=== PATIENT | female | born 1980 | race Caucasian/White ===

== ENCOUNTER → 2019-02-25 11:55 | Outpatient (CLI) | payer OTHER, SELFPAY ==
--- NOTE | 2019-02-25 | DI.MRI.S_ITS ---
PROCEDURE: MR LUMBAR SPINE WO CON INDICATIONS: Low back pain TECHNIQUE: Noncontrast sagittal T1 spin echo and T2 fast echo, sagittal STIR, axial T1 and T2 fast spin echo through the lumbar spine. In cases with scoliosis, additional coronal T2 fast spin echo may be performed. COMPARISON: None. FINDINGS: Image quality: Excellent. Alignment and Curvature: There is grade 1 anterolisthesis of L4 on L5 measures 6 mm in distance. Bone Marrow: Marrow is of normal overall signal. No acute vertebral body compression fractures. Spinal Cord: Conus medullaris terminates at the L1 level. Visualized cord demonstrates normal signal and size. Paraspinous Soft Tissues: No paravertebral masses. L1-L2: Normal appearance. L2-L3: Mild diffuse disc bulge and bilateral facet arthrosis is seen. No significant canal stenosis or neuroforaminal narrowing. L3-L4: Broad-based disc bulge and bilateral facet arthrosis is seen with hypertrophy of ligamentum flavum. No significant canal stenosis or neuroforaminal narrowing. L4-L5: Decreased intervertebral disc space is seen. Broad-based disc bulge and bilateral facet arthrosis with hypertrophy of ligamentum flavum is noted. There is mild central canal stenosis and mild bilateral neuroforaminal narrowing. L5-S1: Broad-based, more left-sided disc bulge and bilateral facet arthrosis is seen with mild central canal stenosis and left-sided neuroforaminal narrowing. Bulging disc likely contacting exiting left L5 nerve root. IMPRESSION: 1. Grade I 6 mm anterolisthesis of L4 on L5. No marrow edema. No acute compression fracture. 2. Degenerative disc bulge and bilateral facet arthrosis throughout lumbar spine causing mild central canal stenosis and bilateral neuroforaminal narrowing as above. Dictated by: Chito Singleton M.D. on 02/25/2019 at 16:13 Approved by: Chito Singleton M.D. on 02/25/2019 at 16:16
== END ==
PROVIDERS: PCP Registered Nurse Diabetes Educator; Visit Provider Registered Nurse Diabetes Educator
DX: M54.5 Low back pain (principal); M43.16 Spondylolisthesis, lumbar region; M47.816 Spondylosis without myelopathy or radiculopathy, lumbar region; M47.817 Spondylosis without myelopathy or radiculopathy, lumbosacral region; M51.36 Other intervertebral disc degeneration, lumbar region; M51.37 Other intervertebral disc degeneration, lumbosacral region; M48.061 Spinal stenosis, lumbar region without neurogenic claudication; M48.07 Spinal stenosis, lumbosacral region
CPT/HCPCS: 72148

== ENCOUNTER → 2020-05-09 13:36 | Outpatient (CLI) | payer OTHER, SELFPAY ==
[2020-05-09 16:08] LABS: COVID19 -Nasal RAPID Negative (Negative)
== END ==
PROVIDERS: PCP Registered Nurse Diabetes Educator; Visit Provider Physician Assistant
DX: Z01.812 Encounter for preprocedural laboratory examination (principal); Z20.822 Contact with and (suspected) exposure to COVID-19
CPT/HCPCS: 87635

== ENCOUNTER → 2020-05-10 15:22 | Outpatient (CLI) | payer OTHER, SELFPAY ==
--- NOTE | 2020-05-10 15:56 | PM.TREADMILL ---
Cardiac Stress Test Report Referral & Results Date Patient Seen: 05/10/20 Time Patient Seen: 15:56 Requesting provider: Dian Silva Indication: chest pain Rest ECG: sinus tachycardia Procedure Note: Standard Hua protocol, 9:00, 8.9 METS Good exercise capacity, DULCE -3% Normal hemodynamic response to exercise No chest pain or anginal symptoms No significant ST changes at peak exercise No ectopy Impression: Normal exercise stress test Please note: Actual ECG tracings can be found in the PACS system.
--- NOTE | 2020-05-10 20:05 | DI.NM.S_ITS ---
DATE OF SERVICE: PROCEDURE: Exercise stress test. INDICATIONS: Chest pain. CARDIAC STRESS: The patient underwent exercise stress test under the supervision of an attending staff. She walked on Hua protocol for 9 minutes, achieved 101 percent of target heart rate, normal hemodynamic response, 10.1 METS of workload and functional aerobic impairment -3%. No chest pain or anginal symptoms. The patient felt dyspnea during exercise. Baseline EKG revealed sinus rhythm with sinus tachycardia, rate about 124, and about 0.[address] depression in inferior lateral leads. During stress, there were no new significant ischemic changes or significant arrhythmias. CONCLUSION: Exercise stress test did not reveal any obvious inducible ischemic changes. The patient has baseline sinus tachycardia, rate about [address]/T changes. No new significant arrhythmias seen. Functional aerobic impairment -3%. She walked on Hua protocol for 9 minutes. Achieved 10.1 METS of workload. Normal blood pressure response. Overall this is a low- risk exercise stress test. Alea Yuan - [employer]GR[employer]/harmony/eric doc#: [id number]/job#: [id number] dd: 05/10/2020 17:36:00 dt: 05/10/2020 19:48:00 DICTATING MD/COPIES TO: Mat Blanc MD COPIES MNE: KATEY;
== END ==
PROVIDERS: PCP Registered Nurse Diabetes Educator; Referring Provider Internal Medicine Cardiovascular Disease; Visit Provider Internal Medicine Cardiovascular Disease
DX: R07.9 Chest pain, unspecified (principal)
CPT/HCPCS: 93017